=== PATIENT | male | born 1975 | race Caucasian/White ===

== ENCOUNTER 2018-07-06 01:21 | Inpatient (IN) | payer OTHER ==
[2018-07-06 02:09] LABS: #Lymphocytes 0.6 thou/uL (1.20-3.40); #Monocytes 0.5 thou/uL (0.11-0.59); #Neutrophils 8.1 thou/uL (1.40-6.50); %Basophils 0.3 % (0.0-1.0); %Lymphocytes 6.4 % (21.0-51.0); %Monocytes 5.2 % (0.0-10.0); %Neutrophils 88.1 % (42.0-75.0); Hemoglobin 15.2 g/dL (14.0-18.0); Mean Corpuscular HGB CONC 32.3 g/dL (32.0-36.0); Mean Corpuscular Hemoglobin 26.8 pg (27.0-31.0); Mean Corpuscular Volume 82.7 fL (78.0-98.0); Mean Platelet Volume 11.3 fL (7.4-10.4); Platelet Count 115 thou/uL (130-400); RBC Distribution Width 12.4 % (11.5-14.5); Red Blood Cell (RBC) Count 5.68 mill/uL (4.70-6.10); White Blood Cell (WBC) Count 9.2 thou/uL (4.8-10.8)
[2018-07-06 02:14] LABS: INR-International Normal Ratio 1.9; PTT 35.3 SEC (22.9-36.1); Prothrombin Time 22.2 SEC (12.0-14.7)
[2018-07-06 02:29] LABS: ALT (SGPT) 2871 U/L (8-55); AST (SGOT) 3318 U/L (5-34); Albumin 3.8 g/dL (3.5-5.0); Alkaline Phosphatase 83 U/L (40-150); Anion Gap 18 mmol/L (10-20); BUN (Urea Nitrogen) 13 mg/dL (8.9-20.6); Calc. Creatinine Clearance 0 mL/min (70-130); Calcium 8.7 mg/dL (7.8-10.44); Carbon Dioxide 20 mmol/L (22-29); Chloride 107 mmol/L (98-107); Estimated GFR-MDRD Greater than 90; Globulin 2.7 g/dL (2.4-3.5); Glucose 112 mg/dL (70-105); Potassium 3.7 mmol/L (3.5-5.1); Protein, Total 6.5 g/dL (6.0-8.3); Sodium 141 mmol/L (136-145)
[2018-07-06] MEDS ORDERED: Ondansetron HCl/PF 4 MG/2 ML Vial ONE (02:29)
[2018-07-06] MEDS ORDERED: Acetylcysteine 20% (200mg/mL) 10,000 MG in Dextrose 5% in Water 950 ML IVPB SCH ×2 (03:15→18:30)
[2018-07-06 03:32] VITALS: BMI 41.9
[2018-07-06] MEDS: Sodium Chloride 0.9% 1,000 ML IV SCH ×3 (03:45→14:01)
[2018-07-06] MEDS ORDERED: Ondansetron HCl/PF 4 MG/2 ML Vial IVP PRN (04:36)
[2018-07-06 05:42] LABS: Magnesium 2.4 mg/dL (1.6-2.6); Phosphorus 3.9 mg/dL (2.3-4.7)
--- NOTE | 2018-07-06 06:34 | HP ---
PRIMARY CARE PHYSICIAN: Patient came from [facility]. CHIEF COMPLAINT: Suicidal attempt with Tylenol. CODE STATUS: FULL CODE. TIME OF EVALUATION: 4:30 a.m. HISTORY OF PRESENT ILLNESS: This is a 43-year-old male patient with past medical history of no signi ficant medical problems, came to the hospital after having an intentional overdose of 200 tablets of Tylenol plus mg of ibuprofen, the patient reportedly was trying to kill himself, he lives in [facility], reported all have been I believe due to family problems. Patient was found to have LFTs elevated that have been trending up the last one above 2000. For that reason, the patient was admitted to [facility], Poison Control has been called with our recommendations. GI has been consulted for recom mendations regarding need for transfer to another facility or see if the patient can be managed here. REVIEW OF SYSTEMS: Constitutional: No fever, chills or generalized weakness. Respiratory: No coug h, sputum production or shortness of breath. Cardiovascular: No chest pain, palpitation. Gastroint estinal: The patient has abdominal tenderness. No nausea, no vomiting, no diarrhea. CHURN OPERATOR: No dizzi ness, headache or feeling lightheaded. Her mentation is intact. Genitourinary: No burning with uri [place]. Extremities: No leg swelling. All other systems reviewed and are negative except for the f inding mentioned above. PAST MEDICAL HISTORY: The patient has no significant past medical history. PAST SURGICAL HISTORY: No surgical history. PSYCHIATRIC HISTORY: The patient has bipolar disorder, schizoaffective disorder. No previous suicid al ideation or attempt. SOCIAL HISTORY: Drinks every day. No drug use. Former tobacco smoker. DRUG ALLERGIES: No known drug allergies. REPORTED MEDICATIONS: None. PHYSICAL EXAMINATION: VITAL SIGNS: On presentation, blood pressure 164/91 with heart rate 63, respiratory rate was 18, tem perature 98.1. Pain was 0/10, oxygen saturation 98 on 2 liters. GENERAL APPEARANCE: The patient is alert, oriented, no acute distress. HEENT: Eyes, normal conjunctivae. Moist oral mucosa. Anicteric. NECK: No JVD. RESPIRATORY: Bilateral air entry. No rales, no wheezing. Symmetric expansion. CARDIOVASCULAR: Normal rate, regular rhythm. No murmurs, no gallop, no edema. ABDOMEN: Soft, normal bowel sounds. Diffuse tenderness. MUSCULOSKELETAL: Baseline range of motion and strength. No tenderness. SKIN: Warm and dry. No pallor, no rash. No redness. Peripheral pulses are present. Capillary ref ill seems to be intact. NEUROLOGIC: Baseline sensory. No evidence of any new focal weakness. Baseline speech. Cranial ner ves seem to be intact. PSYCHIATRIC: Patient is in good mood. No anxiety. Oriented. Optimal judgement. EKG: I discussed with the performing physician from the ER showed normal sinus rhythm at a rate of 6 9, no ectopics, conduction is normal. ST segments normal. LABORATORY DATA: Reviewed. The patient has white count 9.2, hemoglobin 15.2, MCV 82.7, platelet cou nt 115. Coagulation: PT 22.2, INR 1.9, PTT 35.3. Sodium 141, potassium 3.7, chloride 107, carbon d ioxide 20, anion gap 19, BUN 13, creatinine 0.8, GFR greater than 90, glucose 112, calcium 9.7, total bilirubin 2.0, AST , alkaline phosphatase 83, serum total protein 6.5, albumin 3.8, globulin 2. 7, albumin globulin ratio (00:00) 1.4. ASSESSMENT AND PLAN: The patient will be placed in the hospital for the following medical problems, 1. Acute liver failure secondary to Tylenol toxicity. The patient has LFTs more than 1000 with elev ated INR, patient is receiving Mucomyst protocol. We will monitor labs. The GI has been called from ER, will follow recommendations. 2. Intentional Tylenol overdose for suicidal attempts, patient is not suicidal at this point, seems to be depressed, and will need psych evaluation for assistance with this case. 3. Deep venous thrombosis prophylaxis. The patient is auto anticoagulated. 4. The patient is auto anticoagulated. We will prepare FFPs for transfusion as needed.
--- NOTE | 2018-07-06 07:00 | PDOC.EVN ---
Event Note - Event Note Event Note: contacted [facility] in [place]- transplant center for questions regarding need for transplant given high lft's, Dr Ross not call back received , might need to be follow up by my colleagues in am, Dr Acevedo has been consulted from ER we will follow recommendations.
--- NOTE | 2018-07-06 08:33 | PDOC.PN ---
- Subjective Encounter Start Date: 07/06/18 Encounter Start Time: 08:31 Mr. Melgoza was seen today in follow-up of Tylenol overdose. He does not have any complaints, other than he wasnts to drink something. He says he had some nausea earlier but does not now. He denies abdominal pain. - Objective Resuscitation Status: Resuscitation Status FULL:Full Resuscitation MAR Reviewed: Yes Vital Signs & Weight: Vital Signs (12 hours) Temp Pulse Resp BP Pulse Ox 07/06/18 07:53 99 07/06/18 07:24 98.3 F 84 20 121/50 L 100 07/06/18 04:00 99 07/06/18 03:18 98.0 F 72 14 146/69 H 99 Weight Weight 326 lb 11.2 oz I&O: 07/05/18 07/06/18 07/07/18 06:59 06:59 06:59 Intake Total 349.5 Balance 349.5 Result Diagrams: 07/06/18 02:00 07/06/18 02:00 Additional Labs: Accuchecks 07/06/18 06:28 POC Glucose 124 H Phys Exam - Physical Examination HEENT: PERRLA, sclera anicteric Respiratory: no wheezing, no rales, no rhonchi, clear to auscultation bilateral Cardiovascular: RRR, no significant murmur, no rub no gallop Gastrointestinal: soft, non-tender, no distention, positive bowel sounds Musculoskeletal: edema present + non-pitting edema, both lower extremities Neurological: non-focal, moves all 4 limbs Psychiatric: normal affect, A&O x 3 Dx/Plan (1) Acetaminophen overdose Code(s): T39.1X1A - POISONING BY 4-AMINOPHENOL DERIVATIVES, ACCIDENTAL, INIT Status: Acute (2) Liver failure, acute Status: Acute (3) Suicide attempt Status: Acute (4) Obesity, Class III, BMI 40-49.9 (morbid obesity) Code(s): E66.01 - MORBID (SEVERE) OBESITY DUE TO EXCESS CALORIES Status: Chronic - Plan * Acetaminophen Overdose- Continue Mucomyst Infusion. HisLFT's are elevated, , patient is awake and alert however, will repeat his liver function tests in a few hours * Await Gastroenterology evaluation * Continue NPO status until GI evaluation.
[2018-07-06] MEDS ORDERED: Pantoprazole 40 MG VIAL IVP SCH (09:00)
[2018-07-06 10:44] LABS: INR-International Normal Ratio 2.3; Prothrombin Time 25.2 SEC (12.0-14.7)
[2018-07-06 12:56] LABS: Albumin 3.5 g/dL (3.5-5.0); Alkaline Phosphatase 84 U/L (40-150); Bilirubin, Direct 1.6 mg/dL (0.1-0.3); Bilirubin, Total 2.6 mg/dL (0.2-1.2); Protein, Total 5.8 g/dL (6.0-8.3)
[2018-07-06 13:08] LABS: ALT (SGPT) 4149 U/L (8-55)
[2018-07-06 13:14] LABS: AST (SGOT) Greater than 3500 U/L (5-34)
[2018-07-06 15:36] VITALS: BP 117/53; TEMP 98.9
[2018-07-06 16:07] LABS: Iron 199 ug/dL (65-175); Iron Binding Capacity, Total 199 mcg/dL (261-462)
[2018-07-06 16:18] LABS: Albumin 3.5 g/dL (3.5-5.0); Alkaline Phosphatase 88 U/L (40-150); Bilirubin, Direct 1.7 mg/dL (0.1-0.3); Bilirubin, Total 2.7 mg/dL (0.2-1.2); Protein, Total 5.6 g/dL (6.0-8.3)
[2018-07-06 16:27] LABS: HBCM Index 0.07 S/CO (0-0.79); HBSAg Index 0.24 S/CO (0-0.99); Hep A IgM AB Non-Reactive (NonReactive); Hep A IgM S/CO 0.09 S/CO (0-0.79); Hep B Surf Ag Non-Reactive S/CO (NonReactive); Hep C IgG Ab Non-Reactive (NonReactive); Hep C Index 0.19 S/CO (0-0.79); Hepatitis B Core IGM Abs Non-Reactive (NonReactive)
[2018-07-06 16:30] LABS: ALT (SGPT) 4564 U/L (8-55)
[2018-07-06 16:31] LABS: AST (SGOT) Greater than 3500 U/L (5-34)
[2018-07-06] MEDS ORDERED: Sodium Chloride 0.45% 1,000 ML IV SCH (17:45)
--- NOTE | 2018-07-06 18:15 | DIS ---
DATE OF ADMISSION: 07/06/2018 DATE OF DISCHARGE: 07/06/2018 DIAGNOSIS: Drug-induced liver injury secondary to his intentional acetaminophen overdose for suicide attempt. HOSPITAL COURSE: Mr. Melgoza ingested 200 tablets of acetaminophen 325 mg yesterday morning at 7:30 a .m., 07/05/2018. He presented to an outside emergency room and had labs drawn around 1615 hours. Hi s transaminases were in the 120s range. His INR was 1.1; acetaminophen level was 231, which was abou t 9 hours after ingestion; and his bilirubin was normal. He received N-acetylcysteine IV 15,000 mg a t 1630 hours. He was then transferred here in the appraisal technician. He received a second dose of N-sj tylcysteine about 3:45 a.m. This was a 10,000 mg dose. His labs at 2:00 a.m. showed the INR to have increased from 1.1 to 1.9. The bilirubin increased to 2.6, alkaline phosphatase was normal at 84, A ST was greater than 3500, ALT 4149. Labs were repeated again at 1534 hours. Bilirubin was 2.7, AST greater than 3500, ALT 4564. The INR at 2:00 a.m. was 1.9. INR at 10:00 a.m. was 2.3. Viral hepati tis A IgM was nonreactive, hepatitis B surface antigen was nonreactive, hepatitis B core IgM was nonr eactive, and hepatitis C antibody was nonreactive. His iron was 199 with a TIBC of 199. Acetaminoph en level at 1534 was 76. This was 32 hours after ingestion. His mental status has remained normal. Of note, when he presented to the outside emergency room before his liver test increase, his platele t count was 96. He does have a history of obesity and underwent gastric bypass surgery 23 years ago. There is a possibility of chronic underlying liver disease. Abdominal ultrasound has been ordered, but no results back on that. IMPRESSION: Drug-induced liver injury secondary to acetaminophen overdose. He did start his N-acety lcysteine IV protocol. RECOMMENDATIONS: He is being transferred to [facility] as this is where pretransplant evaluation will have to take place given the patient's incarcerated status. For now, his mental status is normal; sylwia stone, this will need to be monitored closely.
--- NOTE | 2018-07-06 19:13 | CON ---
DATE OF CONSULTATION: 07/06/2018 CHIEF COMPLAINT: Acetaminophen overdose. HISTORY OF PRESENT ILLNESS: Mr. Melgoza is a 43-year-old inmate who attempted suicide by taking Tylen ol overdose yesterday morning at 7:30 a.m. He is about to go through a divorce, which triggered this episode; however, he states that he does not wish to commit suicide at this point. He took 200 tabl ets of acetaminophen at 325 mg per tablet. He took 8 or 9 ibuprofen 800 mg tablets. He presented to the outside emergency room and had blood work done at time 1619 hours with acetaminophen level at th at time of 231, which is well into the potential for toxic range. The time of ingestion was 7:30 a.m . His initial labs on 07/05/2018 at 1619 hours included a platelet count of 96,000, hemoglobin of 13 .3. His creatinine was 0.8. His bilirubin was 0.7. His albumin was 3.7. AST was 131, ALT 121, alk jesus phosphatase 81. INR was 1.1. He was transferred to [facility]. Of note, prior to transfer, he was given acetylcysteine 15,000 mg at 1822 hours. This was given as IV infusion. Rocco diez received 10,000 mg IV infusion second dose at 0344 hours this morning, 07/06/2018. Followup labs a t 2 o'clock in the morning on 07/06/2018 showed a bilirubin of 2, AST of 3318, ALT of 2871, and INR o f 1.9. Labs at 12:25 p.m. on 07/06/2018 shows bilirubin of 2.6, AST greater than 3500, ALT 4149, and INR of 2.3. Currently, he is awake and conversing normally. He has no confusion and no pain. He vomited twice a fter he was in the ambulance on a ride over here, but other than that, he has had no nausea or vomiti ng. He has a bowel movement about every 3 days at baseline and has not had a bowel movement for a co uple days. He has had no blood in the stool. He had a gastric bypass around 23 years ago. His weig ht at the time of surgery was 500 pounds. He lost down to 250 pounds of his lowest and currently is around 326 pounds. PAST MEDICAL HISTORY: Bipolar disorder and schizoaffective disorder. He has a history of morbid obe sity. PAST SURGICAL HISTORY: Gastric bypass. FAMILY HISTORY: Positive for lung cancer in his father. SOCIAL HISTORY: He drank five 40-ounce beers per day prior to incarceration. He drank heavily for a bout a year. Prior to that, he was on probation for 10 years and drank very little. He is a former smoker. No history of IV drug use. ALLERGIES: No known drug allergies. MEDICATIONS PRIOR TO ADMISSION: Divalproex 500 mg tablets, 2 tablets daily; and venlafaxine 75 mg da kiki. REVIEW OF SYSTEMS: Negative x10 systems reviewed except as stated in the history of present illness. PHYSICAL EXAMINATION: VITAL SIGNS: Temperature 98.9, pulse 74, blood pressure 117/53. GENERAL: He is in no acute distress. He is alert and oriented x3. HEENT: Eyes have no scleral icterus. Oropharynx is clear without lesions. NECK: No cervical or supraclavicular lymphadenopathy. LUNGS: Clear to auscultation bilaterally. HEART: Regular rate and rhythm without murmur. ABDOMEN: Soft, nontender, nondistended. Bowel sounds are present. EXTREMITIES: No lower extremity edema. NEUROLOGIC: He has no asterixis on neurological exam. LABORATORY AND X-RAY FINDINGS: White blood cell count is 9.2, hemoglobin 15.2, platelets 115. INR 2 .3, up from 1.9, up from 1.1 as stated above. Bilirubin is 2.6, AST greater than 3500, ALT 4149, alb umin 3.5, creatinine 0.86. IMPRESSION: Acetaminophen overdose with associated liver toxicity. Drug-induced liver injury. The rising INR, rising bilirubin, and transaminases in the thousands is concerning that he could progress to fulminant liver failure. Currently, he does not have fulminant liver failure as his mental statu s is completely normal. He did start Mucomyst IV infusion about 11 hours after ingestion. I am conc erned that he could have underlying chronic liver disease that could result in a more severe course, given that his platelet count was low on initial presentation. He certainly be at risk for fatty tj er disease and has a history of past alcohol abuse. RECOMMENDATIONS: 1. Check a viral hepatitis screen again looking for evidence of underlying chronic liver disease patito t could result in a more severe course with this acute injury. 2. Continue to follow the trend of the INR, LFTs, and bilirubin. Also monitor his mental status patrice sely. 3. Continue IV Mucomyst infusion protocol. 4. I recommend transfer to a liver transplant center at this point given the rising INR and signific ant acetaminophen overdose. This should be done prior to change in mental status, at which point it is likely too late. Certainly, his weight and the fact that he is incarcerated may affect his transp lant suitability, but this is to be determined by liver transplant center.
--- NOTE | 2018-07-06 19:32 | ULT ---
HEPATIC ULTRASOUND WITH DOPPLER: 07/06/18 Novak scale images of the liver obtained. Color doppler and spectral analysis was performed on the he patic vessels. HISTORY: Gastric bypass. Abnormal liver function tests. The liver is enlarged measuring up to 22 cm. The liver is mildly heterogeneous. The exam is limited due to patient's body habitus. Color doppler was performed. The left hepatic vein and portal veins show bidirectional flow which may be due to cardiac interference. Other vessels show normal hepatopedal flow including the other hepat ic portal veins, hepatic artery and splenic vein. Spleen appears normal. Patient is post cholecystectomy. The pancreas is obscured. Kidneys are not domingo ged. IMPRESSION: Hepatomegaly with heterogeneous liver. Hepatic vessels show hepatopedal flow. Left hepatic vein and portal veins show bidirectional flow which may represent cardiac interference. POS: ANITA
--- NOTE | 2018-07-06 22:50 | CON ---
DATE OF CONSULTATION: 07/06/2018 SERVICE: Pulmonary Medicine. REASON FOR CONSULTATION: IMCU patient. HISTORY OF PRESENT ILLNESS: Patient is a 43-year-old white male with past medical history significan t for depression and psychosis. Either way, he was in a depressed state. He downed the bottle of Ty lenol. Apparently, he took 200 tablets. He presented to the emergency department outside of the 4-h our window. His first Tylenol level 9 hours after ingestion was well above the nomogram level for to xicity. The patient is currently asymptomatic. That being said, his laboratory findings are extreme ly ominous. He has a little bit of abdominal discomfort, but outside of that, he is in his usual sta te of health. He denies any current fevers, chills, nausea, vomiting, diarrhea, chest discomfort, pa lpitations. PAST MEDICAL HISTORY: 1. Bipolar disorder. 2. Schizoaffective disorder. PAST SURGICAL HISTORY: None. SOCIAL HISTORY: He is a daily drinker. He is currently incarcerated. He denies any illicit drugs. He has a remote history of smoking but quit over 5 years ago. He has no exposure to chemicals, dust , asbestosis, tuberculosis otherwise. FAMILY HISTORY: Noncontributory. ALLERGIES: No known drug allergies. MEDICATIONS: List of his inpatient medications were reviewed. No specific updates were made. REVIEW OF SYSTEMS: General, head, eyes, nose, throat, cardiovascular, respiratory, GI, , musculosk eletal, neurologic and skin is negative except as mentioned in the HPI. PHYSICAL EXAMINATION: VITAL SIGNS: Afebrile, pulse 74, blood pressure 117/53, respirations 18, saturations 97% on room air . GENERAL: The patient is awake, alert, no apparent distress. LUNGS: Decent air entry. There is no prolonged expiratory phase, wheezing, rhonchi or crackles. HEART: Normal rate, regular. ABDOMEN: Soft. Tender to palpation throughout is mild. There is no rebound or guarding. Bowel harjinder nds are present. MUSCULOSKELETAL: No cyanosis or clubbing. There is trace pitting in the bilateral lower extremities . NEUROLOGIC: Grossly nonfocal. LABORATORY DATA: WBC 9.2, hemoglobin 15.2, platelets 115,000. INR 2.3, up trending. AST and ALT ar e greater than the assay limit. Bilirubin is trending upward from 2.0 to 2.7. Creatinine and other basic metabolic profile is unremarkable. Magnesium and phosphorus fall within the normal limits. Ac etaminophen level is currently 76, which is down trending compared to outside hospital record. IMAGING: Ultrasound of the abdomen is currently pending. ASSESSMENT: 1. Tylenol overdose. 2. Suicide attempt. 3. Acute hepatic failure. 4. Coagulopathy secondary to #3. DISCUSSION AND PLAN: With this ingestion, the patient suffered a horrendous liver injury. If his ki dney stopped working, we will need to transfer him to a tertiary care center for consideration of tj er biopsy. My suspicion is that this will be a fatal event. Currently, the patient is asymptomatic. The acetylcysteine was appropriately started as soon as we got a hold of the patient. This drip ne eds to be continued until the patient's Tylenol level is completely normal. Pulmonary will continue to follow along and the patient will certainly need to remain in IMCU until the liver injury resolves .
--- NOTE | 2018-07-07 00:44 | DIS ---
DATE OF ADMISSION: 07/06/2018 DATE OF DISCHARGE: 07/06/2018 DISCHARGE DISPOSITION: To [facility] for higher level of care. DISCHARGE DIAGNOSES: 1. Acetaminophen overdose. 2. Acute hepatic failure secondary to #1. 3. Suicide attempt. DISCHARGE MEDICATIONS: Include, 1. Mucomyst infusion which is currently running. 2. Normal saline at 100 mL an hour. PROCEDURES DONE DURING ADMISSION: The patient had an abdominal ultrasound, which was pending at the time of discharge. CODE STATUS: FULL CODE. ALLERGIES: No known drug allergies. HOSPITAL COURSE: Mr. Melgoza is a 43-year-old gentleman who was admitted to the hospital after he too k two Tylenol tablets in an attempt to hurt himself. He was brought to the hospital and lab results were obtained. It was found that he had extremely high transaminases with the AST being greater than 3500, ALT at 4149 and an elevated INR of 1.9. Patient's INR was also elevated and due to the concer n for fulminant hepatic failure, the patient is being transferred to higher level of care at [facility].
== END 2018-07-06 19:08 | disposition short-term general hospital (02) | DRG 918 ==
LOC: ERS 01:21 → IMCU/EMU 02:46
PROVIDERS: ADMIT Hospitalist; ATTEND Hospitalist
DX: T39.1X2A Poisoning by 4-Aminophenol derivatives, intentional self-harm, initial encounter (principal); K71.10 Toxic liver disease with hepatic necrosis, without coma; F31.9 Bipolar disorder, unspecified; F25.9 Schizoaffective disorder, unspecified
CPT/HCPCS: 36415; 36416; 76705; 80053; 80074; 80307; 83540; 83550; 83735; 84100; 85025; 85610; 85730; 86850; 86900; 86901; 93005; 94760; 96374; C9113; J0132; J2405; J7070